=== PATIENT | male | born 1995 | race African-American/Black ===

== ENCOUNTER 2021-07-02 10:24 | Emergency (ER) | payer OTHER ==
[~2021-07-02] VITALS: Ht 170.2 cm; Wt 70.0 kg
[2021-07-02 10:25] VITALS: BP 134/81
[2021-07-02] MEDS ORDERED: ACET325C5 PO (10:54)
[2021-07-02 13:50] LABS: HEPATITIS B SURFACE ANTIBODY POSITIVE (POSITIVE); HEPATITIS B SURFACE ANTIGEN NEGATIVE (NEGATIVE); HEPATITIS C VIRUS ABY INDEX 0.1 INDEX (<0.8)
[2021-07-02 14:35] LABS: GC DNA AMPLIFICATION NEGATIVE (NEGATIVE)
[2021-07-04 12:08] LABS: CHLAMYDIA RECTAL APTIMA Positive (Negative); GC RECTAL APTIMA Negative (Negative)
[2021-07-04 18:11] LABS: CHLAMYDIA PHARYNGEAL APTIMA Negative (Negative); GC PHARYNGEAL APTIMA Negative (Negative)
== END 2021-07-02 13:26 | disposition home or self-care (01) ==
LOC: M ED 10:24
DX: U07.1 COVID-19 (principal); Z11.3 Encounter for screening for infections with a predominantly sexual mode of transmission

== ENCOUNTER 2021-09-20 19:51 | Observation (INO) | payer OTHER ==
[~2021-09-20] VITALS: Ht 170.2 cm; Wt 69.0 kg
[~2021-09-20 19:51] MED LIST: ACET325C5 PO
[2021-09-20] MEDS ORDERED: IBUP-1022 PO (20:14)
[2021-09-20] MEDS ORDERED: LIDOCAINE VISCOUS 2% SOLN 15ML UDC SS ONE (23:35)
[2021-09-20] MEDS ORDERED: AMPICILLIN SOD/SULBACTAM SOD 3 GM in D5W MINI-BAG PLUS 100 ML IV ONE (23:35)
[2021-09-20] MEDS ORDERED: NS 1,000 ML IV ONE (23:35)
[2021-09-20] MEDS ORDERED: dexameTHASONE 20MG/5ML VIAL (J1100 PER 1MG) IV ONE (23:35)
[2021-09-20] MEDS ORDERED: ONDANSETRON 4MG/2ML VIAL IV ONE (23:35)
[2021-09-20] MEDS ORDERED: ISOVUE-370 76% 100ML VIAL As Ordered ONE (23:40)
[2021-09-21] MEDS ORDERED: ACETAMINOPHEN 500 MG TAB PO ONE
[2021-09-21 00:06] LABS: BASO # 0.1 10^3/uL (0.0-0.2); BASO % 0.3 % (0.0-1.0); EOS # 0.2 10^3/uL (0.0-0.5); EOS % 1.2 % (0.0-3.0); HEMOGLOBIN 14.8 g/dl (13.5-17.5); LYMPH % 5.7 % (24.0-44.0); MEAN CORPUSCULAR HEMOGLOBIN 30.9 pg (27.0-33.0); MEAN CORPUSCULAR HGB CONC 34.4 g/dl (32.0-36.5); MEAN CORPUSCULAR VOLUME 89.8 fl (80.0-96.0); MONO # 0.9 10^3/uL (0.0-0.8); NEUTROPHILS # 15.1 10^3/uL (1.5-8.5); NEUTROPHILS % 87.2 % (36.0-66.0); PLATELET COUNT, AUTOMATED 307 10^3/uL (150-450); RED BLOOD COUNT 4.79 10^6/uL (4.30-6.10); WHITE BLOOD COUNT 17.3 10^3/uL (4.0-10.0)
[2021-09-21 00:27] LABS: BILIRUBIN,DIRECT 0.3 MG/DL (0.0-0.2); BILIRUBIN,TOTAL 0.9 MG/DL (0.2-1.0); C REACTIVE PROTEIN QUANTITATIV 9.89 MG/DL (0.00-0.30); TOTAL PROTEIN 7.9 GM/DL (6.4-8.2)
[2021-09-21 00:36] LABS: ERYTHROCYTE SEDIMENTATION RATE 46 mm/hr (0-15)
[2021-09-21 01:29] LABS: RSV AMPLIFICATION NEGATIVE (NEGATIVE)
[2021-09-21] MEDS ORDERED: HOME MED LIST COMPLETE! XX SCH (02:35)
[2021-09-21] MEDS ORDERED: NS 1,000 ML IV ONE (03:30)
[2021-09-21] MEDS ORDERED: MAGIC MOUTHWASH SUSPENSION BTL SSP PRN (03:30)
[2021-09-21 05:08] VITALS: BP 118/65
[2021-09-21 08:11] LABS: HEMATOCRIT 39.6 % (42.0-52.0); HEMOGLOBIN 13.5 g/dl (13.5-17.5); MEAN CORPUSCULAR HEMOGLOBIN 31.2 pg (27.0-33.0); MEAN CORPUSCULAR HGB CONC 34.1 g/dl (32.0-36.5); MEAN CORPUSCULAR VOLUME 91.5 fl (80.0-96.0); PLATELET COUNT, AUTOMATED 296 10^3/uL (150-450); RED BLOOD COUNT 4.33 10^6/uL (4.30-6.10)
[2021-09-21] MEDS: ACETAMINOPHEN TAB 650MG DOSE (2X325MG) PO PRN ×2 (08:35→14:57)
[2021-09-21 08:38] LABS: ALBUMIN 3.5 GM/DL (3.2-5.2); ALT/SGPT 18 U/L (12-78); BILIRUBIN,TOTAL 0.7 MG/DL (0.2-1.0); BLOOD UREA NITROGEN 14 MG/DL (7-18); CALCIUM LEVEL 9.1 MG/DL (8.5-10.1); CARBON DIOXIDE LEVEL 28 MEQ/L (21-32); CHLORIDE LEVEL 107 MEQ/L (98-107); CREATININE FOR GFR 1.03 MG/DL (0.70-1.30); GLOMERULAR FILTRATION RATE > 60.0 (>60); GLUCOSE, FASTING 113 MG/DL (70-100); MAGNESIUM LEVEL 2.2 MG/DL (1.8-2.4); POTASSIUM SERUM 4.2 MEQ/L (3.5-5.1); SODIUM LEVEL 142 MEQ/L (136-145); TOTAL PROTEIN 7.1 GM/DL (6.4-8.2)
[2021-09-21] MEDS ORDERED: PENICILLIN V POTASSIUM 500 MG TAB PO SCH (09:00)
[2021-09-21 09:13] LABS: ATYPICAL LYMPH 3 % (0-5); BASOPHILS 1 % (0-1); LYMPHOCYTES 3 % (16-44); MONOCYTES 1 % (0-5); NEUTROPHILS 92 % (28-66)
[2021-09-21 09:15] LABS: PLATELET ESTIMATE NORMAL (NORMAL)
[2021-09-21] MEDS ORDERED: AMPICILLIN SOD/SULBACTAM SOD 3 GM in D5W MINI-BAG PLUS 100 ML IV SCH (13:00)
[2021-09-21 14:00] VITALS: BP 122/71
[2021-09-21] MEDS ORDERED: ACET1TAB55 PO (16:59)
[2021-09-21] MEDS ORDERED: PENI500T PO (16:59)
[2021-09-24 07:08] LABS: CHLAMYDIA PHARYNGEAL APTIMA Negative (Negative); GC PHARYNGEAL APTIMA Negative (Negative)
== END 2021-09-21 18:30 | disposition home or self-care (01) ==
LOC: M ED 19:51 → M ED INP 19:52 → M MSPAV 09-21 05:05
PROVIDERS: ADMIT Internal Medicine; ATTEND Family Medicine
DX: J02.0 Streptococcal pharyngitis (principal); A40.9 Streptococcal sepsis, unspecified; Z86.16 Personal history of COVID-19
CPT/HCPCS: 36415; 70491; 80047; 80053; 80076; 83605; 83735; 85025; 85652; 86140; 87040; 87491; 87591; 87631; 87880; 96365; 96366; 96375; 99284; J1100; J2405; Q9967

== ENCOUNTER 2021-09-24 09:00 | Emergency (ER) | payer OTHER ==
[~2021-09-24] VITALS: Ht 170.2 cm; Wt 70.0 kg
[~2021-09-24 09:00] MED LIST changes: +ACET1TAB55 PO; +IBUP-1022 PO; +PENI500T PO
[2021-09-24] MEDS ORDERED: NS 1,000 ML IV ONE (09:55)
[2021-09-24] MEDS ORDERED: dexameTHASONE 20MG/5ML VIAL (J1100 PER 1MG) IV ONE (09:55)
[2021-09-24] MEDS ORDERED: KETOROLAC 30 MG/ML 1ML VIAL IV ONE (09:55)
[2021-09-24 10:31] LABS: BASO # 0.1 10^3/uL (0.0-0.2); BASO % 0.4 % (0.0-1.0); EOS % 0.1 % (0.0-3.0); HEMATOCRIT 41.7 % (42.0-52.0); HEMOGLOBIN 14.2 g/dl (13.5-17.5); LYMPH # 1.6 10^3/uL (1.5-5.0); MEAN CORPUSCULAR HEMOGLOBIN 30.9 pg (27.0-33.0); MEAN CORPUSCULAR HGB CONC 34.1 g/dl (32.0-36.5); MEAN CORPUSCULAR VOLUME 90.7 fl (80.0-96.0); MONO # 1.5 10^3/uL (0.0-0.8); MONO % 11.2 % (2.0-8.0); NEUTROPHILS # 10.1 10^3/uL (1.5-8.5); NEUTROPHILS % 75.5 % (36.0-66.0); PLATELET COUNT, AUTOMATED 345 10^3/uL (150-450); WHITE BLOOD COUNT 13.4 10^3/uL (4.0-10.0)
[2021-09-24 10:48] LABS: BLOOD UREA NITROGEN 8 MG/DL (7-18); CREATININE FOR GFR 0.94 MG/DL (0.70-1.30); GLUCOSE, FASTING 79 MG/DL (70-100)
[2021-09-24 10:49] LABS: CALCIUM LEVEL 9.5 MG/DL (8.5-10.1); CARBON DIOXIDE LEVEL 30 MEQ/L (21-32); CHLORIDE LEVEL 102 MEQ/L (98-107); GLOMERULAR FILTRATION RATE > 60.0 (>60); POTASSIUM SERUM 3.5 MEQ/L (3.5-5.1); SODIUM LEVEL 138 MEQ/L (136-145)
[2021-09-24] MEDS ORDERED: CLINDAMYCIN 900 MG in IV 1 EA IV ONE (11:15)
[2021-09-24] MEDS ORDERED: ACETAMINOPHEN 325 MG TAB PO ONE (11:50)
[2021-09-24] MEDS ORDERED: CLEO300C2 PO (11:50)
[2021-09-24] MEDS ORDERED: KETO10TAB PO (11:51)
[2021-09-24 12:22] VITALS: BP 116/66
[2021-09-25] MEDS ORDERED: PENI500T PO (02:49)
[2021-09-25] MEDS ORDERED: ACET-897 PO (02:49)
== END 2021-09-24 13:07 | disposition home or self-care (01) ==
LOC: M ED 09:00
DX: J02.9 Acute pharyngitis, unspecified (principal); J03.00 Acute streptococcal tonsillitis, unspecified
CPT/HCPCS: 80048; 85025; 96361; 96365; 96375; 99284; J1885

== ENCOUNTER 2021-09-24 22:43 | Inpatient (IN) | payer OTHER ==
[~2021-09-24] VITALS: Ht 170.2 cm; Wt 70.1 kg
[~2021-09-24 22:43] MED LIST changes: +CLEO300C2 PO; +KETO10TAB PO
[2021-09-24] MEDS ORDERED: NS 1,000 ML IV ONE (23:25)
[2021-09-24] MEDS ORDERED: AMPICILLIN SOD/SULBACTAM SOD 3 GM in D5W MINI-BAG PLUS 100 ML IV ONE (23:25)
[2021-09-24] MEDS ORDERED: IBUPROFEN 100 MG/5 ML SUSP UDC DYE FREE PO ONE (23:25)
[2021-09-24] MEDS ORDERED: ISOVUE-370 76% 100ML VIAL As Ordered ONE (23:27)
[2021-09-24 23:52] LABS: BASO % 0.3 % (0.0-1.0); EOS % 0.1 % (0.0-3.0); HEMATOCRIT 35.6 % (42.0-52.0); HEMOGLOBIN 12.4 g/dl (13.5-17.5); LYMPH # 2.2 10^3/uL (1.5-5.0); MEAN CORPUSCULAR HEMOGLOBIN 30.8 pg (27.0-33.0); MEAN CORPUSCULAR HGB CONC 34.8 g/dl (32.0-36.5); MEAN CORPUSCULAR VOLUME 88.3 fl (80.0-96.0); MONO # 1.2 10^3/uL (0.0-0.8); MONO % 9.7 % (2.0-8.0); NEUTROPHILS # 9.1 10^3/uL (1.5-8.5); NEUTROPHILS % 72.1 % (36.0-66.0); PLATELET COUNT, AUTOMATED 308 10^3/uL (150-450); RED BLOOD COUNT 4.03 10^6/uL (4.30-6.10); WHITE BLOOD COUNT 12.7 10^3/uL (4.0-10.0)
[2021-09-25] MEDS ORDERED: ONDANSETRON 4MG/2ML VIAL IV ONE (00:15)
[2021-09-25 00:26] LABS: ALBUMIN 3.3 GM/DL (3.2-5.2); ALT/SGPT 17 U/L (12-78); BILIRUBIN,DIRECT 0.1 MG/DL (0.0-0.2); BILIRUBIN,TOTAL 0.5 MG/DL (0.2-1.0); BLOOD UREA NITROGEN 14 MG/DL (7-18); CALCIUM LEVEL 8.4 MG/DL (8.5-10.1); CARBON DIOXIDE LEVEL 23 MEQ/L (21-32); CHLORIDE LEVEL 104 MEQ/L (98-107); CREATININE FOR GFR 0.95 MG/DL (0.70-1.30); GLOMERULAR FILTRATION RATE > 60.0 (>60); GLUCOSE, FASTING 71 MG/DL (70-100); POTASSIUM SERUM 3.4 MEQ/L (3.5-5.1); SODIUM LEVEL 136 MEQ/L (136-145); TOTAL PROTEIN 6.9 GM/DL (6.4-8.2)
[2021-09-25] MEDS ORDERED: POTASSIUM CHLORIDE 10% LIQ 20 MEQ/15 ML UDC PO ONE (01:00)
[2021-09-25 01:01] LABS: RSV AMPLIFICATION NEGATIVE (NEGATIVE)
[2021-09-25] MEDS ORDERED: KETOROLAC 30 MG/ML 1ML VIAL IV PRN (02:10)
[2021-09-25] MEDS ORDERED: ONDANSETRON 4MG/2ML VIAL IV PRN (02:10)
[2021-09-25] MEDS ORDERED: PENI500T PO (02:49)
[2021-09-25] MEDS ORDERED: ACET-897 PO (02:49)
[2021-09-25] MEDS ORDERED: HOME MED LIST COMPLETE! XX SCH (02:55)
[2021-09-25] MEDS: NS 1,000 ML IV SCH ×3 (03:05→23:07)
[2021-09-25 04:00] VITALS: BP 127/83
[2021-09-25 04:42] LABS: APPEARANCE, URINE CLEAR (CLEAR); BACTERIA, URINE AUTO NEGATIVE (NEGATIVE); BILIRUBIN, URINE AUTO NEGATIVE (NEGATIVE); BLOOD, URINE BLOOD NEGATIVE (NEGATIVE); COLOR, URINE YELLOW (YELLOW); GLUCOSE, URINE (UA) AUTO NEGATIVE (NEGATIVE); KETONE, URINE AUTO 2+ mg/dL (NEGATIVE); LEUKOCYTE ESTERASE, URINE AUTO NEGATIVE (NEGATIVE); MUCUS, URINE SMALL (NEGATIVE); NITRITE, URINE AUTO NEGATIVE (NEGATIVE); PROTEIN, URINE AUTO NEGATIVE (NEGATIVE); RBC, URINE AUTO 1 /HPF (0-3); SPECIFIC GRAVITY URINE AUTO 1.051 (1.002-1.035); SQUAMOUS EPITHELIAL CELL UR AU 0 /HPF (0-6); UROBILINOGEN, URINE AUTO 0.2 mg/dL (0.0-2.0); WBC, URINE AUTO 1 /HPF (0-3)
[2021-09-25] MEDS: AMPICILLIN SOD/SULBACTAM SOD 3 GM in D5W MINI-BAG PLUS 100 ML IV SCH ×3 (05:15→17:31)
[2021-09-25 06:00] VITALS: BP 127/83
[2021-09-25 06:08] LABS: BASO # 0.1 10^3/uL (0.0-0.2); BASO % 0.4 % (0.0-1.0); EOS % 0.2 % (0.0-3.0); HEMATOCRIT 33.5 % (42.0-52.0); HEMOGLOBIN 11.8 g/dl (13.5-17.5); LYMPH # 2.6 10^3/uL (1.5-5.0); LYMPH % 20.6 % (24.0-44.0); MEAN CORPUSCULAR HEMOGLOBIN 31.6 pg (27.0-33.0); MEAN CORPUSCULAR HGB CONC 35.2 g/dl (32.0-36.5); MEAN CORPUSCULAR VOLUME 89.6 fl (80.0-96.0); MONO # 1.3 10^3/uL (0.0-0.8); MONO % 10.1 % (2.0-8.0); NEUTROPHILS # 8.6 10^3/uL (1.5-8.5); PLATELET COUNT, AUTOMATED 291 10^3/uL (150-450); RED BLOOD COUNT 3.74 10^6/uL (4.30-6.10); WHITE BLOOD COUNT 12.7 10^3/uL (4.0-10.0)
[2021-09-25 06:21] LABS: BLOOD UREA NITROGEN 10 MG/DL (7-18); CARBON DIOXIDE LEVEL 25 MEQ/L (21-32); CHLORIDE LEVEL 106 MEQ/L (98-107); CREATININE FOR GFR 0.75 MG/DL (0.70-1.30); GLOMERULAR FILTRATION RATE > 60.0 (>60); GLUCOSE, FASTING 98 MG/DL (70-100); POTASSIUM SERUM 3.9 MEQ/L (3.5-5.1); SODIUM LEVEL 139 MEQ/L (136-145)
[2021-09-25] MEDS: PANTOPRAZOLE 40MG VIAL (C9113 PER 1) IV SCH (09:14)
[2021-09-25] MEDS: MORPHINE 2 MG/ML 1ML VIAL (J2270) IV PRN ×2 (09:15→20:33)
[2021-09-25 10:00] VITALS: BP 126/72
[2021-09-25] MEDS: KETOROLAC 30 MG/ML 1ML VIAL IV PRN ×2 (10:30→18:13)
[2021-09-25] MEDS ORDERED: ACETAMINOPHEN *IV* 1,000 MG in IV 1 EA IV ONE (12:00)
[2021-09-25 14:00] VITALS: BP 119/72
[2021-09-25] MEDS: HYDROCORTISONE 100 MG/2 ML VIAL (J1720 PER 1) IV SCH (17:31)
[2021-09-25 18:00] VITALS: BP 120/73
[2021-09-25] MEDS ORDERED: MAGIC MOUTHWASH SUSPENSION BTL SS PRN (18:25)
[2021-09-25] MEDS ORDERED: ACETAMINOPHEN 325 MG/10.15 ML UDC PO PRN (18:25)
[2021-09-26] VITALS (10 sets, daily range): BP systolic 110–140; BP diastolic 62–90
[2021-09-26] MEDS: HYDROCORTISONE 100 MG/2 ML VIAL (J1720 PER 1) IV SCH ×3 (00:25→15:46)
[2021-09-26] MEDS: AMPICILLIN SOD/SULBACTAM SOD 3 GM in D5W MINI-BAG PLUS 100 ML IV SCH ×4 (00:25→17:42)
[2021-09-26] MEDS: MORPHINE 2 MG/ML 1ML VIAL (J2270) IV PRN (05:49)
[2021-09-26 06:03] LABS: HEMATOCRIT 37.7 % (42.0-52.0); MEAN CORPUSCULAR HEMOGLOBIN 30.4 pg (27.0-33.0); MEAN CORPUSCULAR HGB CONC 34.5 g/dl (32.0-36.5); MEAN CORPUSCULAR VOLUME 88.3 fl (80.0-96.0); PLATELET COUNT, AUTOMATED 343 10^3/uL (150-450); RED BLOOD COUNT 4.27 10^6/uL (4.30-6.10); WHITE BLOOD COUNT 11.5 10^3/uL (4.0-10.0)
[2021-09-26 06:22] LABS: BLOOD UREA NITROGEN 10 MG/DL (7-18); CALCIUM LEVEL 8.5 MG/DL (8.5-10.1); CARBON DIOXIDE LEVEL 30 MEQ/L (21-32); CHLORIDE LEVEL 103 MEQ/L (98-107); CREATININE FOR GFR 0.74 MG/DL (0.70-1.30); GLOMERULAR FILTRATION RATE > 60.0 (>60); GLUCOSE, FASTING 96 MG/DL (70-100); POTASSIUM SERUM 4.3 MEQ/L (3.5-5.1); SODIUM LEVEL 138 MEQ/L (136-145)
[2021-09-26 07:04] LABS: ATYPICAL LYMPH 1 % (0-5); LYMPHOCYTES 17 % (16-44); MONOCYTES 2 % (0-5); NEUTROPHILS 80 % (28-66); PLATELET ESTIMATE NORMAL (NORMAL)
[2021-09-26] MEDS: PANTOPRAZOLE 40MG VIAL (C9113 PER 1) IV SCH (08:41)
[2021-09-26] MEDS: NS 1,000 ML IV SCH ×2 (08:41→18:53)
[2021-09-26] MEDS: KETOROLAC 30 MG/ML 1ML VIAL IV PRN (14:00)
[2021-09-27] MEDS: AMPICILLIN SOD/SULBACTAM SOD 3 GM in D5W MINI-BAG PLUS 100 ML IV SCH ×4 (00:24→17:56)
[2021-09-27] MEDS: HYDROCORTISONE 100 MG/2 ML VIAL (J1720 PER 1) IV SCH ×3 (00:24→16:20)
[2021-09-27] MEDS: KETOROLAC 30 MG/ML 1ML VIAL IV PRN (00:34)
[2021-09-27 02:00] VITALS: BP 123/80
[2021-09-27] MEDS: NS 1,000 ML IV SCH (05:37)
[2021-09-27 06:00] VITALS: BP 124/84
[2021-09-27 06:00] LABS: HEMATOCRIT 35.2 % (42.0-52.0); HEMOGLOBIN 11.9 g/dl (13.5-17.5); MEAN CORPUSCULAR HEMOGLOBIN 30.4 pg (27.0-33.0); MEAN CORPUSCULAR HGB CONC 33.8 g/dl (32.0-36.5); MEAN CORPUSCULAR VOLUME 89.8 fl (80.0-96.0); PLATELET COUNT, AUTOMATED 322 10^3/uL (150-450); RED BLOOD COUNT 3.92 10^6/uL (4.30-6.10); WHITE BLOOD COUNT 9.8 10^3/uL (4.0-10.0)
[2021-09-27 06:18] LABS: ATYPICAL LYMPH 4 % (0-5); LYMPHOCYTES 17 % (16-44); NEUTROPHILS 79 % (28-66); PLATELET ESTIMATE NORMAL (NORMAL)
[2021-09-27 06:21] LABS: BLOOD UREA NITROGEN 14 MG/DL (7-18); CALCIUM LEVEL 8.6 MG/DL (8.5-10.1); CARBON DIOXIDE LEVEL 31 MEQ/L (21-32); CHLORIDE LEVEL 108 MEQ/L (98-107); CREATININE FOR GFR 0.73 MG/DL (0.70-1.30); GLOMERULAR FILTRATION RATE > 60.0 (>60); GLUCOSE, FASTING 116 MG/DL (70-100); POTASSIUM SERUM 4.1 MEQ/L (3.5-5.1); SODIUM LEVEL 142 MEQ/L (136-145)
[2021-09-27] MEDS: PANTOPRAZOLE 40MG VIAL (C9113 PER 1) IV SCH (08:54)
[2021-09-27 10:00] VITALS: BP 127/85
[2021-09-27 14:00] VITALS: BP 129/79
[2021-09-27 18:00] VITALS: BP 129/81
[2021-09-27 22:13] VITALS: BP 127/81
[2021-09-28] MEDS: AMPICILLIN SOD/SULBACTAM SOD 3 GM in D5W MINI-BAG PLUS 100 ML IV SCH ×3 (00:39→11:10)
[2021-09-28] MEDS: HYDROCORTISONE 100 MG/2 ML VIAL (J1720 PER 1) IV SCH ×2 (00:39→08:55)
[2021-09-28 04:43] VITALS: BP 130/81
[2021-09-28 06:00] VITALS: BP 128/77
[2021-09-28] MEDS ORDERED: MAGICMW SS (08:50)
[2021-09-28] MEDS: PANTOPRAZOLE 40MG VIAL (C9113 PER 1) IV SCH (08:55)
[2021-09-28] MEDS: MAGIC MOUTHWASH SUSPENSION BTL SS SCH ×2 (08:56→13:09)
[2021-09-28 14:00] VITALS: BP 130/78
== END 2021-09-28 14:01 | disposition home or self-care (01) | DRG 153 ==
LOC: M ED 22:43 → M ED INP 09-25 01:55 → ENRESERV 09-25 02:45 → M MSPAV 09-25 03:55
PROVIDERS: ADMIT Internal Medicine; ATTEND Internal Medicine Nephrology
DX: J03.90 Acute tonsillitis, unspecified (principal); R10.9 Unspecified abdominal pain; Z79.2 Long term (current) use of antibiotics; Z86.16 Personal history of COVID-19; Z20.822 Contact with and (suspected) exposure to COVID-19; B95.0 Streptococcus, group A, as the cause of diseases classified elsewhere; R00.1 Bradycardia, unspecified